=== PATIENT | male | born 1960 | race Hispanic/Latino ===

== ENCOUNTER → 2018-07-25 | Day surgery (SDC) | payer BC ==
[2018-07-23 12:04] LABS: BASOPHILS % 0.5 % (0.0-1.0); EOSINOPHILS # (AUTO) 0.1 (0.0-0.4); HEMATOCRIT 44.2 % (38.2-49.6); HEMOGLOBIN 14.8 g/dL (14.0-18.0); LYMPHOCYTES # (AUTO) 1.2 (1.0-3.2); LYMPHOCYTES % 19.9 % (18.0-39.1); MEAN CORPUSCULAR HEMOGLOBIN 26.4 pg (28-32); MEAN CORPUSCULAR HGB CONC 33.5 g/dL (31-35); MEAN CORPUSCULAR VOLUME 78.8 fL (81-99); MONOCYTES # (AUTO) 0.2 (0.2-0.8); MONOCYTES % 2.8 % (4.4-11.3); NEUTROPHILS # (AUTO) 4.5 (2.1-6.9); NEUTROPHILS % 74.5 % (38.7-80.0); PLATELET COUNT 180 x10e3/uL (140-360); RED BLOOD COUNT 5.61 x10e6/uL (4.3-5.7); RED CELL DISTRIBUTION WIDTH 13.7 % (11.7-14.4)
[2018-07-23 12:15] LABS: INR 0.84; PROTHROMBIN TIME 12.3 seconds (11.9-14.5)
[2018-07-23 12:16] LABS: PARTIAL THROMBOPLASTIN TIME 26.4 seconds (23.8-35.5)
[~2018-07-25] MED LIST: ASPIR 8181 MG PO; FENTANYL CITRATE/PF 100MCG/2 ML INJ ONE; GLUCAGON FOR INJ 1 MG VIAL ONE; HYOSCYAMINE SULFATE 0.5 MG/ML INJ ONE; LISINOPRIL10 MG PO; METOPROLOL SUCC50 MG PO; PROPOFOL IV EMULSION 10 MG/ML 50 ML VIAL ONE
--- NOTE | 2018-07-25 16:33 | Operative Report ---
DATE OF PROCEDURE: July 25, 2018 REFERRING PHYSICIAN: Dr. Wilda Devine. PROCEDURES PERFORMED 1. Esophagogastroduodenoscopy with biopsies. 2. Colonoscopy with polypectomy. INDICATIONS FOR EGD: Heartburn. INDICATIONS FOR COLONOSCOPY: Colorectal cancer screening. MEDICATION: Patient was done under MAC. Please see anesthesiologist's note. PROCEDURE: With the patient in the left lateral decubitus position, a flexible fiberoptic Olympus gastroscope was introduced into the esophagus under direct visualization without any difficulty. There was some patchy erythema noted in distal esophagus. The scope was then advanced with ease into the stomach and mucosa overlying the antrum and the body revealed some patchy erythema and low grade to moderate edema, and biopsies were obtained and sent to stain for H. pylori. There was some patchy nodularity noted in the proximal body along the lesser curvature, and biopsies were obtained. Pylorus appeared to be of normal contour and shape. It was intubated with ease, and the scope was advanced all the way to the 2nd portion of the duodenum. The scope was then withdrawn slowly. Mucosa overlying the proximal 2nd portion and the duodenal bulb appeared to be within normal limits. The scope was then withdrawn back into the stomach and retroflexed. Mucosa overlying the fundus and the cardia appeared to be within normal limits. The scope was then straightened out. It was subsequently withdrawn. Patient tolerated the procedure well. IMPRESSION 1. Distal esophagitis, mild. 2. Gastritis, biopsied. Biopsies sent to stain for Helicobacter pylori. 3. Patchy nodularity, proximal body, lesser curvature, biopsied. PLAN: Follow up histology. Initiate Protonix 40 mg 1 p.o. q.a.m. a.c. Patient was then turned around; and after adequate lubrication of the anal canal, a flexible fiberoptic Olympus colonoscope was inserted into the rectum with ease and advanced all the way to the cecum. It was then withdrawn slowly. A single diverticulum was noted in the cecum. The rest of the cecum appeared to be within normal limits. The scope was then withdrawn slowly, and the mucosa overlying the ascending colon appeared to be within normal limits as well as the transverse and descending. Some minimal diverticulosis was noted in the sigmoid colon. A minute polyp was hot biopsied from the sigmoid colon. The rectum appeared to be within normal limits. The scope was then retroflexed into the distal rectum and moderate-sized internal hemorrhoids were noted, none of which was actively bleeding. The scope was then straightened out. It was subsequently withdrawn. Patient tolerated the procedure well. IMPRESSION 1. Diverticulosis. 2. Sigmoid colon polyp, minute, hot biopsied. 3. Internal hemorrhoids, none actively bleeding. PLAN: Follow up histology. Initiate high-fiber, low-fat diet. Initiate high-fiber supplement. Start Anusol HC suppositories b.i.d. x 10 days, then p.r.n.. Patient might benefit from a followup colonoscopy in 5 years. Job#: [id number] LPA cc:WILDA DEVINE MD
--- OUTSIDE RECORDS SUMMARY | 2018-07-27 11:47 | XMS REPORT | Clinical Summary ---
Author Author [facility] Address Unknown Phone Unavailable Care Team Providers Care Lawn Care Worker Name Role Phone Feliz Niko Singh PCP Allergies No Known Allergies Medications End Date Status Medication Sig Dispensed Refills Start Date Active metoprolol (TOPROL-XL) 50 Take 50 mg by 0 MG 24 hr tablet mouth daily. Active ALPRAZolam (XANAX) 0.5 MG Take 0.5 mg 0 tablet by mouth every night as needed for Anxiety. Active brimonidine (ALPHAGAN) 1 drop 3 0 0.2 % ophthalmic solution (three) times daily. Active difluprednate 0.05 % Drop Apply to 0 eye(s) 4 (four) times daily. Active dorzolamide-timolol 1 drop 2 0 (COSOPT) 22.3-6.8 mg/mL (two) times ophthalmic solution daily. Active latanoprost (XALATAN) 1 drop 0 0.005 % ophthalmic nightly. solution Active lisinopril-hydrochlorothi Take 1 tablet 0 azide by mouth (PRINZIDE,ZESTORETIC) daily. 10-12.5 mg per tablet Active aspirin 81 MG EC tablet Take 81 mg by 0 mouth daily. Active metFORMIN (GLUCOPHAGE-XR) Take 750 mg 0 750 MG 24 hr tablet by mouth daily with breakfast. Active moxifloxacin (VIGAMOX) 1 drop 3 0 0.5 % ophthalmic solution (three) times daily. Active Problems Problem Noted Date Primary open angle glaucoma of both eyes, severe stage 12/12/2015 Cataract, right eye 11/17/2013 Hepatitis C 07/28/2013 Hypertension 07/28/2013 Glaucoma 07/28/2013 Social History Date Tobacco Use Types Packs/Day Years Used Quit: 06/09/2002 Former Smoker Alcohol Use Drinks/Week oz/Week Comments No sober 10 years Sex Assigned at Date Recorded Not on file Industry Job Start Date Occupation Not on file Not on file Not on file Travel End Travel History Travel Start No recent travel history available. Last Filed Vital Signs Not on file Plan of Treatment Not on file Implants Device Identifier Shelf Expiration Date Model / Serial / Lot Implanted Type Area Manufactur er 04/13/2017 [id number] / [id number] / Iol,Acrysof Natural Wavefront 18.5 Ophthalmol RADHA - [id number] ogy [employer] Implanted: Qty: 1 on 08/11/2013 by Kamille Bach MD 05/19/2018 [id number] / [id number] / Iol,Acrysof Natural Wavefront 17.5 Ophthalmol Right: Eye RADHA - [id number] ogy [employer] Implanted: Qty: 1 on 11/17/2013 by Kamille Bach MD Results Not on fileafter 07/26/2017 Insurance Payer Benefit Subscriber ID Type Phone Address Plan / Group [facility] xxxxxxxxx HMO/POS CARE POS SELECT CHOICE
== END | disposition home or self-care (01) ==
LOC: OR 09:54
PROVIDERS: ATTEND Internal Medicine Gastroenterology
DX: Z12.11 Encounter for screening for malignant neoplasm of colon (principal); K29.50 Unspecified chronic gastritis without bleeding; B96.81 Helicobacter pylori [H. pylori] as the cause of diseases classified elsewhere; K21.9 Gastro-esophageal reflux disease without esophagitis; K64.8 Other hemorrhoids; R12 Heartburn; I10 Essential (primary) hypertension; Z68.35 Body mass index [BMI] 35.0-35.9, adult; K20.9 Esophagitis, unspecified; K57.30 Diverticulosis of large intestine without perforation or abscess without bleeding; K63.5 Polyp of colon; Z86.19 Personal history of other infectious and parasitic diseases; Z01.812 Encounter for preprocedural laboratory examination
CPT/HCPCS: 36415; 43239; 45384; 85025; 85610; 85730; 93005; J1610; J1980; J2704